=== PATIENT | male | born 1970 | race Caucasian/White ===

== ENCOUNTER 2023-03-18 13:54 | Emergency (ER) | payer OTHER ==
[~2023-03-18] VITALS: Ht 177.8 cm; Wt 85.5 kg
[2023-03-18 14:36] VITALS: BP 124/80
[2023-03-18] MEDS ORDERED: sulfamethoxazole/trimethoprim DS (800/160mg) tablet PO ONE (14:45)
[2023-03-18] MEDS ORDERED: LIDOcaine 1% W/epiNEPHrine 1:100,000 20ml vial SQ ONE (14:45)
[2023-03-18] MEDS ORDERED: cephalexin 500mg capsule PO ONE (14:45)
[2023-03-18] MEDS ORDERED: CEPH250T PO (15:24)
[2023-03-18] MEDS ORDERED: SULF1TAB45 PO (15:24)
== END 2023-03-18 15:38 | disposition home or self-care (01) ==
LOC: ER 13:56
DX: L05.01 Pilonidal cyst with abscess (principal)
CPT/HCPCS: 10080; 99283; A6266; A6449